=== PATIENT | male | born 1955 | race Caucasian/White ===

== ENCOUNTER 2018-01-29 12:51 | Inpatient (IN) | END 2018-02-02 19:05 | disposition home health service (06) | DRG 699 ==

== ENCOUNTER 2019-04-22 08:06 | Inpatient (IN) | payer BC ==
[~2019-04-22] VITALS: Ht 174 cm; Wt 73.5 kg
[~2019-04-22 08:06] MED LIST: BUTA1CAP38 PO; DULO60CA6 PO; LORA0.5T PO; TAMS-14 PO
--- NOTE | 2019-04-22 08:28 | ERD ---
ER Documentation Chief Complaint Chief Complaint sent by pcp for low sodium, nausea, vomitting HPI Very pleasant 63-year-old gentleman history of chronic renal insufficiency who presents to the emergency room for outpatient blood test that showed low sodium. The patient described one episode of nausea with a single episode of nonbloody nonbilious emesis. No diarrhea or significant volume loss. Patient states normal urine output. He does have BPH and does use a self-catheterization process. He states no significant changes in his fluid intake. Otherwise he feels normal. No headache no chest pain no seizure. ROS All systems reviewed and are negative except as per history of present illness. Medications Home Meds Active Scripts Tamsulosin Hcl* (Flomax*) 0.4 Mg Cap.er.24h, 0.4 MG PO HS for 60 Days, #60 CAP 4 Refills Prov:EYAL FLEMING MD 02/01/18 Reported Medications Rgssezfkyo-Ildigwwcwipzj-Vcdjoare* (Fioricet*) 50-300-40 Mg Capsule, 1 CAP PO Q4H PRN for MIGRANES, CAP 01/29/18 Lorazepam* (Lorazepam*) 0.5 Mg Tablet, 0.5 MG PO BID PRN for ANXIETY, TAB 01/29/18 Duloxetine Hcl* (Cymbalta*) 60 Mg Capsule.dr, 60 MG PO DAILY, CAP 01/29/18 Allergies Allergies: Coded Allergies: No Known Allergy (Unverified , 01/29/18) PMhx/Soc History of Surgery: No Anesthesia Reaction: No Hx Neurological Disorder: No Hx Respiratory Disorders: No Hx Cardiac Disorders: Yes (HTN) Hx Psychiatric Problems: Yes (depression) Hx Miscellaneous Medical Probl: Yes (BPH) Hx Alcohol Use: Yes (occassionally) Hx Substance Use: No Hx Tobacco Use: No Smoking Status: Never smoker FmHx Family History: No diabetes Physical Exam Vitals Vital Signs Date Temp Pulse Resp B/P (MAP) Pulse Ox O2 O2 Flow FiO2 Time Delivery Rate 04/22/19 98.1 70 24 142/75 100 08:09 (97) Physical Exam General: Well developed, well nourished, no acute distress Head: Normocephalic, atraumatic. Eyes: Pupils equally reactive, EOM intact ENT: Moist mucous membranes Neck: Supple, no lymphadenopathy Respiratory: Lungs clear bilaterally, no distress Cardiovascular: RRR, no murmurs, rubs, or gallops Abdominal: Soft, non-tender, non-distended, no peritoneal signs : Deferred MSK: No edema, no unilateral swelling, 5/5 strength Neurologic: Alert and oriented, moving all extremities, normal speech, no focal weakness, no cerebellar signs Skin: No rash Psych: Normal mood Result Diagram: 04/22/19 0824 04/22/19 0824 Results 24 hrs Laboratory Tests Test 04/22/19 08:24 White Blood Count 7.0 10^3/ul Red Blood Count 3.11 10^6/ul Hemoglobin 9.8 g/dl Hematocrit 27.5 % Mean Corpuscular Volume 88.4 fl Mean Corpuscular Hemoglobin 31.5 pg Mean Corpuscular Hemoglobin Concent 35.6 g/dl Red Cell Distribution Width 13.3 % Platelet Count 436 10^3/UL Mean Platelet Volume 8.9 fl Immature Granulocytes % 2.900 % Neutrophils % 76.8 % Lymphocytes % 12.1 % Monocytes % 7.1 % Eosinophils % 0.7 % Basophils % 0.4 % Nucleated Red Blood Cells % 0.0 /100WBC Immature Granulocytes # 0.200 10^3/ul Neutrophils # 5.3 10^3/ul Lymphocytes # 0.8 10^3/ul Monocytes # 0.5 10^3/ul Eosinophils # 0.1 10^3/ul Basophils # 0.0 10^3/ul Nucleated Red Blood Cells # 0.0 10^3/ul Prothrombin Time 14.1 Sec Prothrombin Time Ratio 1.1 INR International Normalized Ratio 1.08 Activated Partial Thromboplast Time 45.8 Sec Sodium Level 121 mmol/L Potassium Level 4.5 mmol/L Chloride Level 86 mmol/L Carbon Dioxide Level 20 mmol/L Anion Gap 15 Blood Urea Nitrogen 39 mg/dl Creatinine 4.38 mg/dl Est Glomerular Filtrat Rate mL/min 14 mL/min Glucose Level 117 mg/dl Calcium Level 9.5 mg/dl Current Medications Medications Dose Sig/Leila Start Time Status Last (Trade) Ordered Route PRN Stop Time Admin Dose Reason Admin Ondansetron 4 mg ER BRIDGE 04/22/19 HCl (Zofran PRN IV 10:30 Inj) NAUSEA/VOMITI 04/23/19 10:29 NG 650 mg ER BRIDGE 04/22/19 Acetaminophen PRN PO 10:30 (Tylenol .MILD PAIN 04/23/19 10:29 Tab) 1-3 OR TEMP Procedures/MDM EKG, MONITORS, & DIAGNOSTIC IMAGING: EKG: I reviewed and interpreted a 12-lead EKG. Rhythm: Normal sinus rhythm ST Changes: No contiguous ST segment elevations T waves: No contiguous T wave inversions Impression: No evidence of acute cardiac ischemia LAB INTERPRETATION: I reviewed the laboratory testing and it shows hyponatremia of 121, worsening renal function MEDICAL DECISION MAKING: Patient presents for reported hyponatremia on routine outpatient testing. Absolute value is not known. Patient has a known history of chronic renal insufficiency. Unclear etiology of the patient's hyponatremia. Patient appears to be euvolemic. SIADH needs to be considered. Osmolality of serum and urine will be sent. Urine sodium will be sent. I will hold on fluid resuscitation at this time. 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 ER COURSE: * Patient's sodium is 121. He is at increased risk for possible seizures. Inpatient hospitalization is necessary for close observation. * Fluid restriction at this time until further testing including urine electrolytes, osmolality are available. CONSULTATION: None DISPOSITION PLAN: Telemetry admission Accepting care team and consultations: I discussed the current laboratory data, diagnostic imaging and emergency care provided. Admitting team: Dr. Fleming Admitting team indication: Insurance directed Departure Diagnosis: Primary Impression: Hyponatremia Additional Impression: Acute on chronic renal insufficiency Condition: Stable ARTHUR MALDONADO MD Apr 22, 2019 08:28
[2019-04-22] MEDS ORDERED: LORA-444 PO (10:15)
[2019-04-22] MEDS ORDERED: BUTA1CAP38 PO (10:15)
[2019-04-22] MEDS ORDERED: ARIP5TAB14 PO (10:15)
[2019-04-22] MEDS ORDERED: AMLO5TAB4 PO (10:16)
[2019-04-22] MEDS ORDERED: DULO60CA6 PO (10:16)
[2019-04-22] MEDS ORDERED: FERR210T PO (10:17)
[2019-04-22] MEDS ORDERED: SODI325T PO (10:18)
[2019-04-22] MEDS ORDERED: ONDANSETRON 4 MG INJ IV PRN (10:30)
[2019-04-22] MEDS ORDERED: ACETAMINOPHEN 325 MG TAB PO PRN (10:30)
--- NOTE | 2019-04-22 11:13 | HP ---
Date/Time of Note Date/Time of Note DATE: 04/22/19 TIME: 11:13 Assessment/Plan Lines/Catheters IV Catheter Type (from Nrs): Saline Lock Assessment/Plan Result Diagram: 04/22/19 0824 04/22/19 0824 Results 24hrs Laboratory Tests Test 04/22/19 08:24 04/22/19 09:55 White Blood Count 7.0 Red Blood Count 3.11 L Hemoglobin 9.8 L Hematocrit 27.5 L Mean Corpuscular Volume 88.4 Mean Corpuscular Hemoglobin 31.5 Mean Corpuscular Hemoglobin Concent 35.6 Red Cell Distribution Width 13.3 Platelet Count 436 #H Mean Platelet Volume 8.9 Immature Granulocytes % 2.900 H Neutrophils % 76.8 Lymphocytes % 12.1 L Monocytes % 7.1 Eosinophils % 0.7 Basophils % 0.4 Nucleated Red Blood Cells % 0.0 Immature Granulocytes # 0.200 H Neutrophils # 5.3 Lymphocytes # 0.8 Monocytes # 0.5 Eosinophils # 0.1 Basophils # 0.0 Nucleated Red Blood Cells # 0.0 Prothrombin Time 14.1 Prothrombin Time Ratio 1.1 INR International Normalized Ratio 1.08 Activated Partial Thromboplast Time 45.8 H Sodium Level 121 L Potassium Level 4.5 Chloride Level 86 L Carbon Dioxide Level 20 L Anion Gap 15 H Blood Urea Nitrogen 39 H Creatinine 4.38 H Est Glomerular Filtrat Rate mL/min 14 L Glucose Level 117 Calcium Level 9.5 Urine Color STRAW Urine Clarity SLIGHTLY CLOUDY A Urine pH 7.0 Urine Specific [place] 1.002 L Urine Ketones NEGATIVE Urine Nitrite NEGATIVE Urine Bilirubin NEGATIVE Urine Urobilinogen NEGATIVE Urine Leukocyte Esterase 3+ H Urine Microscopic RBC 7 H Urine Microscopic WBC 11 H Urine Bacteria FEW A Urine Hemoglobin 2+ H Urine Random Sodium 14 L Urine Glucose NEGATIVE Urine Total Protein NEGATIVE HPI/ROS Admit Date/Time Admit Date/Time PMH/Family/Social Past Medical History Medications Current Medications Ondansetron HCl (Zofran Inj) 4 mg ER BRIDGE PRN IV NAUSEA/VOMITING; Start 04/22/19 at 10:30; Stop 04/23/19 at 10:29 Acetaminophen (Tylenol Tab) 650 mg ER BRIDGE PRN PO .MILD PAIN 1-3 OR TEMP; Start 04/22/19 at 10:30; Stop 04/23/19 at 10:29 Coded Allergies: No Known Allergy (Unverified , 04/22/19) Past Surgical History Past Surgical Hx: other Family History Significant Family History: no pertinent family hx Social History Smoking Status: Never smoker Exam/Review of Systems Vital Signs Vitals Vital Signs Date Temp Pulse Resp B/P (MAP) Pulse Ox O2 O2 Flow FiO2 Time Delivery Rate 04/22/19 97.8 67 20 117/67 97 Room Air 09:00 (84) MALIK DE LA TORRE NP Apr 22, 2019 11:13
[2019-04-22] MEDS ORDERED: CEFTRIAXONE 1 GM/50 ML (PMX) 50 ML IVPB SCH (11:30)
[2019-04-22] MEDS ORDERED: SOD CHLORIDE 0.9% 1,000 ML IV ONE (11:30)
--- NOTE | 2019-04-22 11:53 | HP ---
Date/Time of Note Date/Time of Note DATE: 04/22/19 TIME: 11:48 Assessment/Plan VTE Prophylaxis SCD applied (from Nsg): Yes Pharmacological prophylaxis: heparin Lines/Catheters IV Catheter Type (from Nrsg): Saline Lock Assessment/Plan Hospital Course 63 yo male with h/o CKD V, depression, hypertension, BPH who presents for evalua tion of hyponatremia found on incidental lab work in clinic Hyponatremia: - Low urine sodium and low urine osms, difficult to tell if this is SIADH or hypovolemia. Will give a trial of NS 1 L now and recheck sodium - Will hold duloxetine in case this is causing SIADH - Dr arce consulted CKD V: - GFR fairly stable - Mointor creatinine - Continue alkali therapy for metabolic acidosis Anemia of CKD: - Stable Depression: - Hold dulextine for now as above Hypertension: - Continue amlodipine BPH: - self catherizes Dc when sodium normalized Result Diagram: 04/22/19 0824 04/22/19 0824 Results 24hrs Laboratory Tests Test 04/22/19 08:24 04/22/19 09:55 White Blood Count 7.0 Red Blood Count 3.11 L Hemoglobin 9.8 L Hematocrit 27.5 L Mean Corpuscular Volume 88.4 Mean Corpuscular Hemoglobin 31.5 Mean Corpuscular Hemoglobin Concent 35.6 Red Cell Distribution Width 13.3 Platelet Count 436 #H Mean Platelet Volume 8.9 Immature Granulocytes % 2.900 H Neutrophils % 76.8 Lymphocytes % 12.1 L Monocytes % 7.1 Eosinophils % 0.7 Basophils % 0.4 Nucleated Red Blood Cells % 0.0 Immature Granulocytes # 0.200 H Neutrophils # 5.3 Lymphocytes # 0.8 Monocytes # 0.5 Eosinophils # 0.1 Basophils # 0.0 Nucleated Red Blood Cells # 0.0 Prothrombin Time 14.1 Prothrombin Time Ratio 1.1 INR International Normalized Ratio 1.08 Activated Partial Thromboplast Time 45.8 H Sodium Level 121 L Potassium Level 4.5 Chloride Level 86 L Carbon Dioxide Level 20 L Anion Gap 15 H Blood Urea Nitrogen 39 H Creatinine 4.38 H Est Glomerular Filtrat Rate mL/min 14 L Glucose Level 117 Calcium Level 9.5 Urine Color STRAW Urine Clarity SLIGHTLY CLOUDY A Urine pH 7.0 Urine Specific [place] 1.002 L Urine Ketones NEGATIVE Urine Nitrite NEGATIVE Urine Bilirubin NEGATIVE Urine Urobilinogen NEGATIVE Urine Leukocyte Esterase 3+ H Urine Microscopic RBC 7 H Urine Microscopic WBC 11 H Urine Bacteria FEW A Urine Hemoglobin 2+ H Urine Osmolality 90 L Urine Random Sodium 14 L Urine Glucose NEGATIVE Urine Total Protein NEGATIVE HPI/ROS Admit Date/Time Admit Date/Time Hx of Present Illness 63 yo male with h/o CKD V, hypertension, BPH presenting with hyponatremia Patient in normal status of health. Undergoing pre-op evaluation for prostate procedure. Had routine labs drawn showing sodium in 120s so referred to ED. Here sodium confirm 123. He says feels generally well. Had an episode of vomiting this morning but no other notable symptoms recently other than this AM. Eating, drinking normally. No diarrhea. No change to urinary or bowel habits ROS Constitutional: no complaints, improved Eyes: no complaints ENT: no complaints Respiratory: no complaints Cardiovascular: no complaints Gastrointestinal: no complaints Genitourinary: no complaints Musculoskeletal: no complaints Skin: no complaints Neurologic: no complaints Endocrine: no complaints Lymphatic: no complaints Psychological: no complaints, nl mood/affect Immunologic: no complaints PMH/Family/Social Past Medical History Medical History: hypertension, renal disease Medications Current Medications Ondansetron HCl (Zofran Inj) 4 mg ER BRIDGE PRN IV NAUSEA/VOMITING; Start 04/22/19 at 10:30; Stop 04/23/19 at 10:29 Acetaminophen (Tylenol Tab) 650 mg ER BRIDGE PRN PO .MILD PAIN 1-3 OR TEMP; Start 04/22/19 at 10:30; Stop 04/23/19 at 10:29 Sodium Chloride 1,000 ml @ 1,000 mls/hr Q1H ONCE IV Last administered on 04/22/19at 11:32; Admin Dose 1,000 MLS/HR; Start 04/22/19 at 11:30; Stop 04/22/19 at 12:29 Coded Allergies: No Known Allergy (Unverified , 04/22/19) Past Surgical History Past Surgical Hx: no surgical history, other Family History Significant Family History: no pertinent family hx Social History Alcohol Use: none Smoking Status: Never smoker Drug Use: none Exam/Review of Systems Vital Signs Vitals Vital Signs Date Temp Pulse Resp B/P (MAP) Pulse Ox O2 O2 Flow FiO2 Time Delivery Rate 04/22/19 97.9 71 20 133/87 97 Room Air 11:38 (102) Exam Constitutional: alert, oriented, well developed Psych: no complaints, nl mood/affect Head: normocephalic, atraumatic Eyes: nl conjunctiva, EOMI, nl lids, nl sclera, PERRL ENMT: nl external ears & nose, nl lips & teeth, nl nasal mucosa & septum Neck: supple, non-tender Respiratory: clear to auscultation, normal air movement Cardiovascular: regular rate and rhythm, nl pulses Gastrointestinal: soft, nl liver, spleen, non-tender Musculoskeletal: nl extremities to inspection Extremities: normal pulses Neurological: ANALOG IC DESIGN ENGINEER II-XII intact, nl mental status, nl speech, nl strength Skin: nl turgor; No rash or lesions Lymph: nl lymph nodes EYAL CEBALLOS MD Apr 22, 2019 11:53
[2019-04-22] MEDS ORDERED: LORAZEPAM 1 MG TAB PO PRN (12:00)
[2019-04-22] MEDS ORDERED: NACL 0.9% 3 ML SYG IV SCH (12:00)
--- NOTE | 2019-04-22 12:09 | CONS ---
Assessment/Plan Assessment/Plan Assessment/Plan (Daily) 1. acute Kidney Injury on CKD IV due to prerenal azotemia 2. Metabolic acidosis due to worsenign CKD 3. Hyponatremia due to Hypovolemic Hyponatremia, r/o SIADH 4. H/o HTN 5. H/O depression 6. H/o vitiligo 7. Chronic Urinary retention doing straight intermittent Catheterisation at home Plan: see in ED, s/p 1 L NS given iNED, hold off on diuretic for now Urine Na, Urine osmolarity, Serum Osmolairty, CK total, Uric acid, BNP pt had a full CKD work up in [facility], no need to repeat it IVF NS at 75 cc/hr x 2 liter then stop Expecting Shell to improve with IVF will resume Diuretics after IVF< CXR negative for CHF/PNA conitnue amlodipine for now if LE worsens then we will switch to Nifedipine in future Thanks for consultation, I will continue to follow up Consultation Date/Type/Reason Admit Date/Time 04/22/2019 Date of Consultation: Apr 22, 2019 Type of Consult NEPHROLOGY Reason for Consultation Acute on chronic renal failure, Hyponatremia Requesting Provider: MALIK DE LA TORRE NP Date/Time of Note DATE: 04/22/19 TIME: 12:09 Hx of Present Illness 63 yo male with h/o CKD V, depression, hypertension, BPH who presents for evaluation of hyponatremia found on incidental lab work in clinic pt was schedule for prostate surgery and he was noted have Hyponatremia with Na 120 on his pre op labs Advised to go to ER In ER pt c/o weakness, tiredness, dizziness, no chest pain, no SOB< Na 121, BUN/Cr 39/4.38 Renal has been consulted for hyponatremia, TIM on CKD IV/V Constitutional: poor po ENT: congestion Respiratory: no complaints Cardiovascular: no complaints Gastrointestinal: no complaints Genitourinary: no complaints Musculoskeletal: no complaints Skin: no complaints Neurologic: no complaints Endocrine: no complaints Lymphatic: no complaints Psychological: no complaints Immunologic: no complaints Past Medical History Medical History: hypertension, renal disease, other (CKD IV/V) Home Meds Reported Medications Cephalexin* (Cephalexin*) 500 Mg Capsule, 500 MG PO Q8, #21 CAP 04/22/19 Sodium Bicarbonate* (Sodium Bicarbonate*) 325 Mg Tablet, 325 MG PO BID, TAB 04/22/19 Ferric Citrate (Auryxia) 210 Mg Tablet, 210 MG PO BID, TAB 04/22/19 Amlodipine Besylate* (Norvasc*) 5 Mg Tablet, 5 MG PO BID, TAB 04/22/19 Duloxetine Hcl* (Cymbalta*) 60 Mg Capsule.dr, 60 MG PO DAILY, CAP 04/22/19 Aripiprazole* (Abilify*) 5 Mg Tab, 5 MG PO QAM, #30 TAB 04/22/19 Lorazepam* (Ativan*) 2 Mg Tablet, 2 MG PO Q8 PRN for ANXIETY, #60 TAB 04/22/19 Qxuvrqivvk-Huazkcfrwoewt-Pqkmkdgx* (Fioricet*) 50-300-40 Mg Capsule, 1 CAP PO Q8H PRN for NEEDED, CAP 04/22/19 Discontinued Reported Medications Nvezekgbjy-Wgekcoxsbwwnl-Uozftikl* (Fioricet*) 50-300-40 Mg Capsule, 1 CAP PO Q4H PRN for MIGRANES, CAP 01/29/18 Lorazepam* (Lorazepam*) 0.5 Mg Tablet, 0.5 MG PO BID PRN for ANXIETY, TAB 01/29/18 Duloxetine Hcl* (Cymbalta*) 60 Mg Capsule.dr, 60 MG PO DAILY, CAP 01/29/18 Discontinued Scripts Tamsulosin Hcl* (Flomax*) 0.4 Mg Cap.er.24h, 0.4 MG PO HS for 60 Days, #60 CAP 4 Refills Prov:EYAL CEBALLOS MD 02/01/18 Medications Current Medications Ondansetron HCl (Zofran Inj) 4 mg ER BRIDGE PRN IV NAUSEA/VOMITING; Start 04/22/19 at 10:30; Stop 04/23/19 at 10:29 Acetaminophen (Tylenol Tab) 650 mg ER BRIDGE PRN PO .MILD PAIN 1-3 OR TEMP; Start 04/22/19 at 10:30; Stop 04/23/19 at 10:29 Sodium Chloride 1,000 ml @ 1,000 mls/hr Q1H ONCE IV Last administered on 04/22/19at 11:32; Admin Dose 1,000 MLS/HR; Start 04/22/19 at 11:30; Stop 04/22/19 at 12:29 Amlodipine Besylate (Norvasc) 5 mg BID PO ; Start 04/22/19 at 21:00; Status UNV Lorazepam (Ativan) 2 mg Q8 PRN PO ANXIETY; Start 04/22/19 at 12:00; Status UNV IV Flush (NS 3 ml) 3 ml PER PROTOCOL IV ; Start 04/22/19 at 12:00; Status UNV Allergies: Coded Allergies: No Known Allergy (Unverified , 04/22/19) Past Surgical History Past Surgical Hx: no surgical history, other Family History Significant Family History: no pertinent family hx Social History Alcohol Use: none Smoking Status: Never smoker Drug Use: none Exam/Review of Systems Exam Vitals Vital Signs Date Temp Pulse Resp B/P (MAP) Pulse Ox O2 O2 Flow FiO2 Time Delivery Rate 04/22/19 97.9 71 20 133/87 97 Room Air 11:38 (102) Constitutional: alert Head: normocephalic Eyes: nl conjunctiva ENMT: nl external ears & nose Neck: supple Respiratory: clear to auscultation, normal air movement Cardiovascular: regular rate and rhythm, nl pulses Gastrointestinal: soft, non-tender Musculoskeletal: nl extremities to inspection, swelling (mild LE pitting edema ) Extremities: normal pulses Neurological: PROGRESS DEVELOPER II-XII intact, nl mental status, nl speech, nl strength Skin: nl turgor Lymph: nl lymph nodes Results Result Diagram: 04/22/19 0824 04/22/19 0824 Results 24hrs Laboratory Tests Test 04/22/19 08:24 04/22/19 09:55 White Blood Count 7.0 Red Blood Count 3.11 L Hemoglobin 9.8 L Hematocrit 27.5 L Mean Corpuscular Volume 88.4 Mean Corpuscular Hemoglobin 31.5 Mean Corpuscular Hemoglobin Concent 35.6 Red Cell Distribution Width 13.3 Platelet Count 436 #H Mean Platelet Volume 8.9 Immature Granulocytes % 2.900 H Neutrophils % 76.8 Lymphocytes % 12.1 L Monocytes % 7.1 Eosinophils % 0.7 Basophils % 0.4 Nucleated Red Blood Cells % 0.0 Immature Granulocytes # 0.200 H Neutrophils # 5.3 Lymphocytes # 0.8 Monocytes # 0.5 Eosinophils # 0.1 Basophils # 0.0 Nucleated Red Blood Cells # 0.0 Prothrombin Time 14.1 Prothrombin Time Ratio 1.1 INR International Normalized Ratio 1.08 Activated Partial Thromboplast Time 45.8 H Sodium Level 121 L Potassium Level 4.5 Chloride Level 86 L Carbon Dioxide Level 20 L Anion Gap 15 H Blood Urea Nitrogen 39 H Creatinine 4.38 H Est Glomerular Filtrat Rate mL/min 14 L Glucose Level 117 Calcium Level 9.5 Urine Color STRAW Urine Clarity SLIGHTLY CLOUDY A Urine pH 7.0 Urine Specific [place] 1.002 L Urine Ketones NEGATIVE Urine Nitrite NEGATIVE Urine Bilirubin NEGATIVE Urine Urobilinogen NEGATIVE Urine Leukocyte Esterase 3+ H Urine Microscopic RBC 7 H Urine Microscopic WBC 11 H Urine Bacteria FEW A Urine Hemoglobin 2+ H Urine Osmolality 90 L Urine Random Sodium 14 L Urine Glucose NEGATIVE Urine Total Protein NEGATIVE Medications Medication Current Medications Ondansetron HCl (Zofran Inj) 4 mg ER BRIDGE PRN IV NAUSEA/VOMITING; Start 04/22/19 at 10:30; Stop 04/23/19 at 10:29 Acetaminophen (Tylenol Tab) 650 mg ER BRIDGE PRN PO .MILD PAIN 1-3 OR TEMP; Start 04/22/19 at 10:30; Stop 04/23/19 at 10:29 Sodium Chloride 1,000 ml @ 1,000 mls/hr Q1H ONCE IV Last administered on 04/22/19at 11:32; Admin Dose 1,000 MLS/HR; Start 04/22/19 at 11:30; Stop 04/22/19 at 12:29 Amlodipine Besylate (Norvasc) 5 mg BID PO ; Start 04/22/19 at 21:00; Status UNV Lorazepam (Ativan) 2 mg Q8 PRN PO ANXIETY; Start 04/22/19 at 12:00; Status UNV IV Flush (NS 3 ml) 3 ml PER PROTOCOL IV ; Start 04/22/19 at 12:00; Status UNV SHAVON VELASQUEZ MD Apr 22, 2019 12:09
[2019-04-22 12:54] VITALS: BP 120/63; PULSE 92; RESP 20
[2019-04-22 13:12] VITALS: Ht 174 cm; Wt 73.5 kg
[2019-04-22] MEDS ORDERED: CEPH500C PO (14:38)
[2019-04-22 15:30] VITALS: BP 122/77; PULSE 80; RESP 20
[2019-04-22] MEDS ORDERED: CITRIC ACID/NA CITRATE 30 ML CUP PO ONE (15:30)
[2019-04-22] MEDS: CEPHALEXIN 500 MG CAP PO SCH ×2 (15:45→21:01)
[2019-04-22] MEDS: SOD CHLORIDE 0.9% 1,000 ML IV SCH (15:45)
[2019-04-22 20:30] VITALS: BP 111/66; PULSE 87; RESP 20
[2019-04-22] MEDS: AMLODIPINE 5 MG TAB PO SCH (21:01)
[2019-04-22] MEDS: CITRIC ACID/NA CITRATE 30 ML CUP PO SCH (21:01)
[2019-04-22 23:45] VITALS: BP 114/72; PULSE 65; RESP 20
[2019-04-23] MEDS ORDERED: ATEN-51 PO (00:39)
[2019-04-23] MEDS ORDERED: DIGO125T93 PO (00:39)
[2019-04-23] MEDS ORDERED: DOCU-159 PO (00:39)
[2019-04-23] MEDS ORDERED: ACET-2047 PO (00:39)
[2019-04-23 04:22] VITALS: BP 106/51; PULSE 58; RESP 20
[2019-04-23] MEDS: CEPHALEXIN 500 MG CAP PO SCH ×2 (05:56→16:34)
[2019-04-23] MEDS: SOD CHLORIDE 0.9% 1,000 ML IV SCH (05:57)
--- NOTE | 2019-04-23 07:35 | CONS ---
Assessment/Plan Assessment/Plan Assessment/Plan (Daily) 1. acute Kidney Injury on CKD IV due to prerenal azotemia 2. Metabolic acidosis due to worsenign CKD 3. Hyponatremia due to Hypovolemic Hyponatremia, r/o SIADH 4. H/o HTN 5. H/O depression 6. H/o vitiligo 7. Chronic Urinary retention doing straight intermittent Catheterisation at home Plan: BUN/Cr 38/4.42, Na improved to 130 continue current bP meds, BP controlled today will follow up Consultation Date/Type/Reason Admit Date/Time Apr 22, 2019 at 10:03 Initial Consult Date 04/22/19 Type of Consult NEPHROLOGY Requesting Provider: MALIK DE LA TORRE NP Date/Time of Note DATE: 04/23/19 TIME: 07:35 Exam/Review of Systems Exam Vitals Vital Signs Date Temp Pulse Resp B/P (MAP) Pulse Ox O2 O2 Flow FiO2 Time Delivery Rate 04/23/19 98.7 58 20 106/51 95 Room Air 04:22 (69) Intake and Output 04/22/19 04/22/19 04/23/19 1515:00 23:00 07:00 IntakeIntake Total 630 ml 1350 ml OutputOutput Total 1300 ml 1800 ml BalanceBalance -670 ml -450 ml Exam Constitutional: alert, awake no acute distress Respiratory: clear to auscultation, normal air movement Cardiovascular: regular rate and rhythm, nl pulses Gastrointestinal: soft, non-tender Musculoskeletal: nl extremities to inspection, swelling (mild LE pitting edema ) Extremities: normal pulses Neurological: PRESSURE SUPERVISOR II-XII intact, nl mental status, nl speech, nl strength Results Result Diagram: 04/22/19 0824 04/22/19 1425 Results 24hrs Laboratory Tests Test 04/22/19 08:24 04/22/19 09:55 04/22/19 14:25 White Blood Count 7.0 Red Blood Count 3.11 L Hemoglobin 9.8 L Hematocrit 27.5 L Mean Corpuscular Volume 88.4 Mean Corpuscular Hemoglobin 31.5 Mean Corpuscular 35.6 Hemoglobin Concent Red Cell Distribution Width 13.3 Platelet Count 436 #H Mean Platelet Volume 8.9 Immature Granulocytes % 2.900 H Neutrophils % 76.8 Lymphocytes % 12.1 L Monocytes % 7.1 Eosinophils % 0.7 Basophils % 0.4 Nucleated Red Blood Cells % 0.0 Immature Granulocytes # 0.200 H Neutrophils # 5.3 Lymphocytes # 0.8 Monocytes # 0.5 Eosinophils # 0.1 Basophils # 0.0 Nucleated Red Blood Cells # 0.0 Prothrombin Time 14.1 Prothrombin Time Ratio 1.1 INR International 1.08 Normalized Ratio Activated Partial Thromboplast 45.8 H Time Sodium Level 121 L 126 L Potassium Level 4.5 4.7 Chloride Level 86 L 92 L Carbon Dioxide Level 20 L 22 Anion Gap 15 H 12 Blood Urea Nitrogen 39 H 42 H Creatinine 4.38 H 4.58 H Est Glomerular Filtrat 14 L 13 L Rate mL/min Glucose Level 117 108 Osmolality 251 L Calcium Level 9.5 9.3 Urine Color STRAW Urine Clarity SLIGHTLY CLOUDY A Urine pH 7.0 Urine Specific [place] 1.002 L Urine Ketones NEGATIVE Urine Nitrite NEGATIVE Urine Bilirubin NEGATIVE Urine Urobilinogen NEGATIVE Urine Leukocyte Esterase 3+ H Urine Microscopic RBC 7 H Urine Microscopic WBC 11 H Urine Bacteria FEW A Urine Hemoglobin 2+ H Urine Osmolality 89 L Urine Random Creatinine 14.65 L Urine Random Sodium 14 L Urine Protein/Creatinine Ratio 2.11 Urine Glucose NEGATIVE Urine Total Protein 31.0 H Thyroid Stimulating 2.690 Hormone (TSH) Medications Medication Current Medications Amlodipine Besylate (Norvasc) 5 mg BID PO Last administered on 04/22/19at 21:01; Admin Dose 5 MG; Start 04/22/19 at 21:00 Lorazepam (Ativan) 2 mg Q8 PRN PO ANXIETY; Start 04/22/19 at 12:00 IV Flush (NS 3 ml) 3 ml PER PROTOCOL IV ; Start 04/22/19 at 12:00 Sodium Chloride 1,000 ml @ 75 mls/hr [id number] IV Last administered on 04/23/19at 05:57; Admin Dose 75 MLS/HR; Start 04/22/19 at 15:30; Stop 04/23/19 at 18:09 Citric Acid/ Sodium Citrate (Bicitra) 30 ml TID PO Last administered on 04/22/19at 21:01; Admin Dose 30 ML; Start 04/22/19 at 21:00 Cephalexin (Keflex) 500 mg Q8 PO Last administered on 04/23/19at 05:56; Admin Dose 500 MG; Start 04/22/19 at 15:30 SHAVON VELASQUEZ MD Apr 23, 2019 07:35
[2019-04-23 07:57] VITALS: BP 116/70; PULSE 70; RESP 20
[2019-04-23] MEDS: AMLODIPINE 5 MG TAB PO SCH (08:06)
[2019-04-23] MEDS: CITRIC ACID/NA CITRATE 30 ML CUP PO SCH ×2 (08:06→16:34)
--- NOTE | 2019-04-23 10:18 | PDOCDIS ---
Discharge Instructions DIAGNOSIS Discharge Diagnosis Hyponatremia CONDITION [id number] Patient Condition: [id number] Stable FOLLOW UP/APPOINTMENTS Follow-up Plan You must have your blood work checked in the next few days to make sure your sodium level has normalized EYAL CEBALLOS MD Apr 23, 2019 10:18
[2019-04-23 10:53] VITALS: BP 129/86; PULSE 67; RESP 20
[2019-04-23 15:42] VITALS: BP 114/72; PULSE 70; RESP 18
--- NOTE | 2019-04-23 16:22 | DS ---
Date/Time of Note Date/Time of Note DATE: 04/23/19 TIME: 16:21 Discharge Summary Admission/Discharge Info Admit Date/Time Apr 22, 2019 at 10:03 Discharge Date/Time Discharge Diagnosis Hyponatremia Patient Condition: Stable Hx of Present Illness 63 yo male with h/o CKD V, hypertension, BPH presenting with hyponatremia Patient in normal status of health. Undergoing pre-op evaluation for prostate procedure. Had routine labs drawn showing sodium in 120s so referred to ED. Here sodium confirm 123. He says feels generally well. Had an episode of vomiting this morning but no other notable symptoms recently other than this AM. Eating, drinking normally. No diarrhea. No change to urinary or bowel habits Hospital Course 63 yo male with h/o CKD V, depression, hypertension, BPH who presents for evaluation of hyponatremia found on incidental lab work in clinic Urine studies showed low urine sodium consistent with hypovolemia. He was given IV normal saline 0.9% and his hyponatermia improved to 130. I suggested he stay for further monitorign but patient adamently requested discharge. He will have his labs checked again in the next few days Home Meds Reported Medications Cephalexin* (Cephalexin*) 500 Mg Capsule, 500 MG PO Q8, #21 CAP 04/22/19 Sodium Bicarbonate* (Sodium Bicarbonate*) 325 Mg Tablet, 325 MG PO BID, TAB 04/22/19 Ferric Citrate (Auryxia) 210 Mg Tablet, 210 MG PO BID, TAB 04/22/19 Amlodipine Besylate* (Norvasc*) 5 Mg Tablet, 5 MG PO BID, TAB 04/22/19 Duloxetine Hcl* (Cymbalta*) 60 Mg Capsule.dr, 60 MG PO DAILY, CAP 04/22/19 Aripiprazole* (Abilify*) 5 Mg Tab, 5 MG PO QAM, #30 TAB 04/22/19 Lorazepam* (Ativan*) 2 Mg Tablet, 2 MG PO Q8 PRN for ANXIETY, #60 TAB 04/22/19 Wddpxhenlq-Nirrhgqlljiyh-Iaqncgkb* (Fioricet*) 50-300-40 Mg Capsule, 1 CAP PO Q8H PRN for NEEDED, CAP 04/22/19 Discontinued Reported Medications Koqmmvdhfd-Xpzcycowpdhiu-Xtdcxcoi* (Fioricet*) 50-300-40 Mg Capsule, 1 CAP PO Q 4H PRN for MIGRANES, CAP 4/5/18 Lorazepam* (Lorazepam*) 0.5 Mg Tablet, 0.5 MG PO BID PRN for ANXIETY, TAB 01/29/18 Duloxetine Hcl* (Cymbalta*) 60 Mg Capsule.dr, 60 MG PO DAILY, CAP 01/29/18 Discontinued Scripts Tamsulosin Hcl* (Flomax*) 0.4 Mg Cap.er.24h, 0.4 MG PO HS for 60 Days, #60 CAP 4 Refills Prov:EYAL CEBALLOS MD 02/01/18 Follow-up Plan You must have your blood work checked in the next few days to make sure your sodium level has normalized Primary Care Provider Not On Staff Doctor Pending Labs Laboratory Tests Test 04/23/19 07:47 Sodium Level 130 mmol/L (135-144) Potassium Level 4.6 mmol/L (3.5-5.1) Chloride Level 98 mmol/L (97-110) Carbon Dioxide Level 21 mmol/L (21-31) Anion Gap 11 (5-13) Blood Urea Nitrogen 38 mg/dl (7-20) Creatinine 4.42 mg/dl (0.61-1.24) Est Glomerular Filtrat Rate mL/min 14 mL/min (>60) Glucose Level 102 mg/dl (70-220) Hemoglobin A1c 5.4 % (0-5.9) Osmolality 272 mOsm/kg (280-295) Calcium Level 9.1 mg/dl (8.4-10.2) EYAL CEBALLOS MD Apr 23, 2019 16:22
== END 2019-04-23 17:10 | disposition home or self-care (01) | DRG 641 ==
LOC: E/R 08:06 → TEL 10:03 → SUATTDRO 11:20 → TEL 04-23 11:07
PROVIDERS: ADMIT Internal Medicine; ATTEND Internal Medicine
DX: E87.1 Hypo-osmolality and hyponatremia (principal); I12.0 Hypertensive chronic kidney disease with stage 5 chronic kidney disease or end stage renal disease; N18.5 Chronic kidney disease, stage 5; N17.9 Acute kidney failure, unspecified; E87.2 Acidosis; D63.1 Anemia in chronic kidney disease; F32.9 Major depressive disorder, single episode, unspecified; N40.1 Benign prostatic hyperplasia with lower urinary tract symptoms; R33.8 Other retention of urine; L80 Vitiligo
CPT/HCPCS: 36415; 71046; 80048; 81001; 81003; 82570; 83036; 83930; 83935; 84300; 84443; 85025; 85610; 85730; 93005; A4310; J0696; J7030